=== PATIENT | male | born 1970 | race Caucasian/White ===

== ENCOUNTER 2022-11-09 23:57 | Emergency (ER) | payer OTHER ==
[~2022-11-09] VITALS: Ht 193 cm; Wt 2.3 kg
--- NOTE | 2022-11-10 00:38 | NUR ---
seen and examined by Dr. Briggs
[2022-11-10] MEDS ORDERED: CEFTRIAXONE 1 G VIAL IM ONE (00:45)
[2022-11-10] MEDS ORDERED: PSEUDOEPHEDRINE HCL 30 MG TABLET PO ONE (00:45)
[2022-11-10] MEDS ORDERED: OXYCODONE/APAP 5-325 MG TABLET PO ONE (00:45)
[2022-11-10] MEDS ORDERED: PSEU-310 PO (00:47)
[2022-11-10] MEDS ORDERED: OXYC-128 PO (00:47)
[2022-11-10] MEDS ORDERED: [UNRECOGNIZED DRUG - CODE] PO (00:47)
[2022-11-10] MEDS ORDERED: CEFTRIAXONE 1 G VIAL ONE (00:59)
[2022-11-10] MEDS ORDERED: OXYCODONE/APAP 5-325 MG TABLET ONE (01:00)
[2022-11-10] MEDS ORDERED: PSEUDOEPHEDRINE HCL 30 MG TABLET ONE (01:00)
--- NOTE | 2022-11-10 01:10 | NUR ---
Patient discharged to home in stable condition. Written and verbal after care instructions given. Patient verbalizes understanding of instructions. Stressed follow up or return to ER for worsening s/s.
[2022-11-10 01:11] VITALS: BP 128/84
== END 2022-11-10 01:11 | disposition home or self-care (01) ==
LOC: ER 11-10 00:10
DX: J32.9 Chronic sinusitis, unspecified (principal); H92.01 Otalgia, right ear; Z88.6 Allergy status to analgesic agent; J44.9 Chronic obstructive pulmonary disease, unspecified
CPT/HCPCS: 99283; 96372; J0696; A4663